=== PATIENT | male | born 1940 | race Caucasian/White ===

== ENCOUNTER 2017-02-11 21:02 | Emergency (ER) | payer MEDICARE ==
[~2017-02-11] VITALS: Ht 188 cm; Wt 94.2 kg
[2017-02-11 21:06] VITALS: BP 155/85; PULSE 72; RESP 22; TEMP 97.6; O2SAT 100
[2017-02-11] MEDS ORDERED: ONDANSETRON HCL 4 MG/2 ML VIAL IVP ONE (21:30)
[2017-02-11] MEDS ORDERED: SODIUM CHLORIDE 0.9% FLUSH 10 ML FLUSH IV FLUSH PRN (21:30)
[2017-02-11] MEDS ORDERED: HYDROmorphone HCL PF 2 MG/ML VIAL IV PUSH ONE (21:30)
[2017-02-11 21:35] VITALS: BP 188/82; PULSE 67; RESP 18; O2SAT 98
[2017-02-11] MEDS ORDERED: ATEN25TA PO (21:47)
[2017-02-11] MEDS ORDERED: LIVA1TAB PO (21:48)
[2017-02-11] MEDS ORDERED: ASPI81CH6 CHEW (21:49)
[2017-02-11] MEDS ORDERED: COLC1TAB15 PO (21:49)
[2017-02-11 21:50] LABS: AUTOMATED NEUTROPHIL # 8.3 TH/MM3 (1.8-7.7); BASOPHIL # 0.1 TH/MM3 (0-0.2); EOSINOPHIL # 0.3 TH/MM3 (0-0.4); EOSINOPHIL % 2.3 % (0.0-4.0); HEMATOCRIT 37.2 % (39.0-51.0); HEMO FLAGS DIFF FINAL; MEAN CELL VOLUME 82.2 FL (80.0-100.0); MEAN CORPUSCULAR HEMOGLOBIN 27.2 PG (27.0-34.0); MEAN CORPUSCULAR HGB CONC 33.1 % (32.0-36.0); MONO % 11.4 % (0.0-8.0); NEUT % 76.3 % (16.0-70.0); PLATELET COUNT 208 TH/MM3 (150-450); RED BLOOD COUNT 4.53 MIL/MM3 (4.50-5.90); RED CELL DISTRIBUTION WIDTH 14.9 % (11.6-17.2); WHITE BLOOD COUNT 10.9 TH/MM3 (4.0-11.0)
[2017-02-11 21:53] LABS: BLOOD, URINE NEG (NEG); GLUCOSE,URINE NEG (NEG); KETONE, URINE NEG (NEG); NITRITE,URINE NEG (NEG); PH, URINE 7.5 (5.0-8.5)
[2017-02-11 21:55] LABS: CHLORIDE 104 MEQ/L (98-107); POTASSIUM 3.7 MEQ/L (3.5-5.1); SODIUM (NA) 137 MEQ/L (136-145)
--- NOTE | 2017-02-11 21:58 | PD ---
HPI Chief Complaint: Abdominal Pain Time Seen by Provider: 21:15 Travel History International Travel<30 days: No Contact w/Intl Traveler<30days: No Traveled to known affect area: No History of Present Illness HPI Patient is a 76-year-old male with a history of CABG in August of this year presents emergency department for evaluation of epigastric and right upper quadrant abdominal pain for the past 6 hours. Patient states that he had a salad for lunch and doesn't think that this had anything to do with it, denies any greasy food intake, states she's never had pain like this before. States the pain is fairly severe, not associated with any dysuria nausea vomiting diarrhea. Not associated with any dysuria. States this pain is cramping in nature, constant, context as above, location as above. PFSH Past Medical History Narrative Medical Coronary artery disease, high cholesterol, atrial fibrillation, back pain, Cardiovascular Problems: Yes (valve replacement, stent, high cholesterol, A Fib ) Past Surgical History Narrative Surgical Bilateral cataracts, valve replacement, CABG, prostatectomy, Family History Narrative Family History Non-contributory Social History Alcohol Use: Yes Tobacco Use: No Substance Use: No Allergies-Medications (Allergen,Severity, Reaction): Coded Allergies: No Known Allergies (Unverified , 02/11/17) Reported Meds & Prescriptions Reported Meds & Active Scripts Active Reported Colchicine 0.6 Mg Tab 0.6 Mg PO BID Aspirin Low Dose (Aspirin) 81 Mg Chew 81 Mg CHEW DAILY Livalo (Pitavastatin) 1 Mg Tab 1 Mg PO DAILY Atenolol 25 Mg Tab 25 Mg PO DAILY Review of Systems Except as stated in HPI: all other systems reviewed are Neg Physical Exam Narrative GENERAL: Well-developed well-nourished appears somewhat uncomfortable. SKIN: Focused skin assessment warm/dry. HEAD: Atraumatic. Normocephalic. EYES: Pupils equal and round. No scleral icterus. No injection or drainage. ENT: No nasal bleeding or discharge. Mucous membranes pink and moist. NECK: Trachea midline. No JVD. CARDIOVASCULAR: Regular rate and rhythm. No murmur appreciated. RESPIRATORY: No accessory muscle use. Clear to auscultation. Breath sounds equal bilaterally. GASTROINTESTINAL: Abdomen soft, minimally tender in the right upper quadrant, nondistended. Hepatic and splenic margins not palpable. No rebound no percussive tenderness, psoas and after signs negative. MUSCULOSKELETAL: No obvious deformities. No clubbing. No cyanosis. No edema. NEUROLOGICAL: Awake and alert. No obvious cranial nerve deficits. Motor grossly within normal limits. Normal speech. PSYCHIATRIC: Appropriate mood and affect; insight and judgment normal. Data Data Last Documented VS Vital Signs Date Time Temp Pulse Resp B/P (MAP) Pulse Ox O2 Delivery O2 Flow Rate FiO2 02/11/17 23:18 02/11/17 23:05 68 18 98 Room Air 02/11/17 21:06 97.6 Orders Orders Complete Blood Count With Diff (02/11/17 21:22) Comprehensive Metabolic Panel (02/11/17 21:22) Lipase (02/11/17 21:22) Prothrombin Time / Inr (Pt) (02/11/17 21:22) Act Partial Throm Time (Ptt) (02/11/17 21:22) Urinalysis - C+S If Indicated (02/11/17 21:22) Us Abdomen Gallbladder (02/11/17 ) Iv Access Insert/Monitor (02/11/17 21:22) Ecg Monitoring (02/11/17 21:22) Oximetry (02/11/17 21:22) Ondansetron Inj (Zofran Inj) (02/11/17 21:30) Sodium Chloride 0.9% Flush (Ns Flush) (02/11/17 21:30) Electrocardiogram (02/11/17 21:22) Chest, Single Ap (02/11/17 21:22) Hydromorphone Pf Inj (Dilaudid Pf Inj) (02/11/17 21:30) Troponin I (02/11/17 21:35) Ed Discharge Order (02/11/17 23:02) Labs Laboratory Tests Test 02/11/17 21:35 02/11/17 21:45 White Blood Count 10.9 TH/MM3 Red Blood Count 4.53 MIL/MM3 Hemoglobin 12.3 GM/DL Hematocrit 37.2 % Mean Corpuscular Volume 82.2 FL Mean Corpuscular Hemoglobin 27.2 PG Mean Corpuscular Hemoglobin Concent 33.1 % Red Cell Distribution Width 14.9 % Platelet Count 208 TH/MM3 Mean Platelet Volume 7.4 FL Neutrophils (%) (Auto) 76.3 % Lymphocytes (%) (Auto) 9.0 % Monocytes (%) (Auto) 11.4 % Eosinophils (%) (Auto) 2.3 % Basophils (%) (Auto) 1.0 % Neutrophils # (Auto) 8.3 TH/MM3 Lymphocytes # (Auto) 1.0 TH/MM3 Monocytes # (Auto) 1.2 TH/MM3 Eosinophils # (Auto) 0.3 TH/MM3 Basophils # (Auto) 0.1 TH/MM3 CBC Comment DIFF FINAL Differential Comment Prothrombin Time 9.9 SEC Prothromb Time International Ratio 1.0 RATIO Activated Partial Thromboplast Time 25.7 SEC Blood Urea Nitrogen 19 MG/DL Creatinine 1.20 MG/DL Random Glucose 133 MG/DL Total Protein 7.2 GM/DL Albumin 3.4 GM/DL Calcium Level 8.6 MG/DL Alkaline Phosphatase 96 U/L Aspartate Amino Transf (AST/SGOT) 26 U/L Alanine Aminotransferase (ALT/SGPT) 29 U/L Total Bilirubin 0.8 MG/DL Sodium Level 137 MEQ/L Potassium Level 3.7 MEQ/L Chloride Level 104 MEQ/L Carbon Dioxide Level 24.7 MEQ/L Anion Gap 8 MEQ/L Estimat Glomerular Filtration Rate 59 ML/MIN Troponin I 0.02 NG/ML Lipase 193 U/L Urine Color YELLOW Urine Turbidity CLEAR Urine pH 7.5 Urine Specific Bly 1.021 Urine Protein NEG mg/dL Urine Glucose (UA) NEG mg/dL Urine Ketones NEG mg/dL Urine Occult Blood NEG Urine Nitrite NEG Urine Bilirubin NEG Urine Leukocyte Esterase NEG Urine RBC 0-3 /hpf Urine WBC 0-2 /hpf Urine Squamous Epithelial Cells 0-5 /hpf Microscopic Urinalysis Comment CULT NOT INDICATED MDM Medical Decision Making Medical Screen Exam Complete: Yes Emergency Medical Condition: Yes Interpretation(s) patient's EKG shows left anterior fascicular block and a right bundle branch block, otherwise normal sinus rhythm. No previous for comparison. Without the correct clinical context is certainly does not meet STEMI criteria. Differential Diagnosis cholecystitis, pancreatitis, gastroenteritis, peptic ulcer disease, abdominal wall pain. Narrative Course patient roomed emergency department, he does appear than stated age, states he has a problem with morphine that it doesn't usually work for him and requests Dilaudid, after milligram IV was given the patient had complete resolution of his symptoms. This pain is fairly well isolated to the right upper quadrant and seems to be superficial and palpation, is Guy sign was negative. Given the onset after food intake think an ultrasound is prudent at this time. Ultrasound does not show any obvious etiology of the patient's pain. Last 24 hours Impressions Chest X-Ray 02/11/[id number] Signed Impressions: Service Date/Time: Saturday, February 11, 2017 21:48 - CONCLUSION: 1. No acute findings. Postoperative median sternotomy. Atrial clip present. Markie Harrell MD Gall Bladder Ultrasound 02/11/17 0000 Signed Impressions: Service Date/Time: Saturday, February 11, 2017 22:04 - CONCLUSION: 1. Mild hepatic enlargement. No free fluid. No gallstones or biliary ductal dilatation. Markie Harrell MD Patient's labs are wholly reassuring, CBC unremarkable, CMP unremarkable, troponin negative, lipase negative. Patient reexamined and abdomen is benign, the patient now relates a history of playing tennis early this morning and thinks that maybe he strained a muscle in his abdomen, this certainly could be the etiology behind his pain, I discussed with him that a CAT scan could be considered however given his benign abdomen and reassuring labs I think that it is probably low yield. The patient agrees at this time, he is feeling well enough to go home, discussed symptomatic management home and if the pain should return and he has any concerns overnight to return to the emergency department for repeat evaluation. He verbalized understanding and agreement, discussed follow-up with a primary care physician for consideration of colonoscopy and endoscopy Diagnosis Primary Impression: RUQ abdominal pain Patient Instructions: Acute Abdominal Pain (DC), General Instructions Disposition: 01 DISCHARGE HOME Condition: Stable Castillo Olivares MD Feb 11, 2017 21:58
[2017-02-11 21:59] LABS: ANION GAP 8 MEQ/L (5-15); BICARBONATE 24.7 MEQ/L (21.0-32.0); BLOOD UREA NITROGEN 19 MG/DL (7-18)
[2017-02-11 22:01] LABS: ALT (GPT) 29 U/L (12-78)
[2017-02-11 22:02] LABS: AST (GOT) 26 U/L (15-37); GLOMERULAR FILTRATION RATE 59 ML/MIN (>89)
[2017-02-11 22:03] LABS: TOTAL BILIRUBIN ADULT 0.8 MG/DL (0.2-1.0)
[2017-02-11 22:04] LABS: ALKALINE PHOSPHATASE 96 U/L (45-117); APTT (PATIENT) 25.7 SEC (24.3-30.1); PROTHROMBIN TIME - PATIENT 9.9 SEC (9.8-11.6)
[2017-02-11 22:08] LABS: COMMENT (UR) CULT NOT INDICATED; CULTURE IF INDICATED CULT NOT INDICATED; RBC, URINE 0-3 /hpf (0-3); SQUAMOUS EPITHELIAL CELL URINE 0-5 /hpf (0-5); URINE COLOR YELLOW (YELLW/STRAW); WBC, URINE 0-2 /hpf (0-5)
--- NOTE | 2017-02-11 22:13 | RADRPT ---
EXAM DATE/TIME: 02/11/2017 21:48 [facility] COMPARISON: No previous studies available for comparison. INDICATIONS : Epigastric pain. Shortness of pain. MEDICAL HISTORY : None. SURGICAL HISTORY : Coronary artery stent. Aortic valve replacement. ENCOUNTER: Initial ACUITY: 1 day PAIN SCORE: 9/10 LOCATION: Epigastric. FINDINGS: A single view of the chest demonstrates postoperative median sternotomy. Surgical clips present. No c onsolidation or effusion. No pneumothorax. CONCLUSION: 1. No acute findings. Postoperative median sternotomy. Atrial clip present. Markie Harrell MD on February 11, 2017 at 22:11 Board Certified Radiologist. This report was verified electronically.
--- NOTE | 2017-02-11 22:30 | RADRPT ---
EXAM DATE/TIME: 02/11/2017 22:04 [facility] COMPARISON: No previous studies available for comparison. INDICATIONS : Right upper quadrant pain. MEDICAL HISTORY : Hypercholesterolemia. Afib. SURGICAL HISTORY : Coronary artery stent. Appendectomy. Cardiac valve replacement. ENCOUNTER: Initial ACUITY: 1 day PAIN SCORE: 9/10 LOCATION: Right upper quadrant MEASUREMENTS: LIVER: 19.5 cm length COMMON DUCT: 5 mm RIGHT KIDNEY: 11.0 x 4.6 x 4.8 cm FINDINGS: Liver mildly enlarged at 19.5 cm. No gallstones or biliary ductal dilatation. Right kidney unremarkab le. No free fluid. CONCLUSION: 1. Mild hepatic enlargement. No free fluid. No gallstones or biliary ductal dilatation. Markie Harrell MD on February 11, 2017 at 22:24 Board Certified Radiologist. This report was verified electronically.
[2017-02-11 22:36] VITALS: RESP 18; O2SAT 95
[2017-02-11 23:05] VITALS: BP 167/88; PULSE 68; RESP 18; O2SAT 98
--- NOTE | 2017-02-12 15:29 | EKG ---
Date Performed: 02/11/2017 Time Performed: 21:32:59 PTAGE: 76 years EKG: Sinus rhythm RIGHT BUNDLE BRANCH BLOCK LEFT ANTERIOR FASCICULAR BLOCK LEFT VENTRICULAR HYPERTROPHY AND ST-T WILKINS E ABNORMAL ECG NO PREVIOUS TRACING DOCTOR: Angel Neri Interpretating Date/Time 02/12/2017 15:28:34
[2017-02-14] MEDS ORDERED: RANI150T PO (15:46)
== END 2017-02-11 23:20 | disposition home or self-care (01) ==
LOC: PHED 21:02
DX: R10.11 Right upper quadrant pain (principal); E78.00 Pure hypercholesterolemia, unspecified; I48.91 Unspecified atrial fibrillation
CPT/HCPCS: 71010; 76705; 80053; 81001; 83690; 84484; 85025; 85610; 85730; 93005; 96374; 96375; 99285; J1170; J2405